=== PATIENT | male | born 1955 | race African-American/Black ===

== ENCOUNTER 2020-10-01 08:02 | Outpatient (REF) | payer OTHER, SELFPAY ==
--- NOTE | ~2020-10-01 | XR_ITS ---
EXAMINATION: XR SHOULDER, LEFT CLINICAL INFORMATION: Pain COMPARISON: None TECHNIQUE: 3 views of the left shoulder. FINDINGS: There is loss of glenohumeral joint space without any bony erosive changes. No visible acute fracture, dislocation or subluxation seen. The AC joint is unremarkable. XR/XR shoulder LT min 2V IMPRESSION: Unremarkable left shoulder exam.
== END 2020-10-01 08:03 | disposition home or self-care (01) ==
LOC: HO.HOSX 08:02
PROVIDERS: Visit Provider Orthopaedic Surgery
DX: S46.002A Unspecified injury of muscle(s) and tendon(s) of the rotator cuff of left shoulder, initial encounter (principal); M54.12 Radiculopathy, cervical region; M25.512 Pain in left shoulder
CPT/HCPCS: 73030

== ENCOUNTER → 2020-11-12 08:05 | Outpatient (BNVA) | payer OTHER, SELFPAY | PROVIDERS: Visit Provider Physician Assistant | DX: S46.002D Unspecified injury of muscle(s) and tendon(s) of the rotator cuff of left shoulder, subsequent encounter (principal); M54.12 Radiculopathy, cervical region | CPT/HCPCS: 99212 ==

== ENCOUNTER → 2020-12-09 13:00 | Outpatient (BNVA) | payer OTHER, SELFPAY | PROVIDERS: PCP Family Medicine; Visit Provider Anesthesiology | DX: M50.30 Other cervical disc degeneration, unspecified cervical region (principal); M54.12 Radiculopathy, cervical region | CPT/HCPCS: 99202 ==